=== PATIENT | female | born 1960 | race Hispanic/Latino ===

== ENCOUNTER 2023-11-01 13:49 | Emergency (ER) | payer OTHER ==
[~2023-11-01] VITALS: Ht 160 cm; Wt 95.3 kg
[2023-11-01] MEDS: KETOROLAC 60 MG VIAL (30MG/ML) IM ONE (18:05)
[2023-11-01 18:24] VITALS: BP 141/56; PULSE 72; RESP 16; O2SAT 100
== END 2023-11-01 18:26 | disposition home or self-care (01) ==
LOC: EDH 13:49
DX: S90.121A Contusion of right lesser toe(s) without damage to nail, initial encounter (principal); E11.9 Type 2 diabetes mellitus without complications; I10 Essential (primary) hypertension; M19.90 Unspecified osteoarthritis, unspecified site; Z90.49 Acquired absence of other specified parts of digestive tract; Z90.89 Acquired absence of other organs; X58.XXXA Exposure to other specified factors, initial encounter; Y93.89 Activity, other specified; Y92.89 Other specified places as the place of occurrence of the external cause; Y99.8 Other external cause status
CPT/HCPCS: 73660